=== PATIENT | female | born 1950 | race Caucasian/White ===

== ENCOUNTER 2020-07-06 07:20 | Outpatient (CLI) | payer MEDICARE, SELFPAY ==
[2020-07-06 08:25] LABS: Thyroid Stimulating Hormone < 0.015 uIU/mL (0.465-4.680)
[2020-07-06 09:57] LABS: Free T4 Free Thyroxine 1.79 ng/mL (0.78-2.19)
== END 2020-07-06 07:21 | disposition home or self-care (01) ==
LOC: ANHLAB 07:21
PROVIDERS: PCP Family Medicine; Visit Provider Internal Medicine Endocrinology, Diabetes & Metabolism
DX: E03.9 Hypothyroidism, unspecified (principal)
CPT/HCPCS: 36415; 84439; 84443